=== PATIENT | male | born 1990 | race American Indian/Alaskan Native ===

== ENCOUNTER 2020-01-22 00:12 | Emergency (ER) | payer SELFPAY ==
--- NOTE | 2020-01-22 01:48 | XRay Report ---
LEFT HAND 3 VIEW INDICATION / CLINICAL INFORMATION: Left ring finger pain. COMPARISON: None available. FINDINGS: BONES/JOINT(S): No acute fracture or subluxation. No significant degenerative changes. SOFT TISSUES: No significant abnormality. ADDITIONAL FINDINGS: None. Signer Name: Matthias He MD Signed: 01/22/2020 1:44 AM Workstation Name: [id number]
--- NOTE | 2020-01-22 02:02 | Emergency Department Report ---
ED General Adult HPI - General Chief complaint: Extremity Injury, Upper Stated complaint: JAMMED FINGER Time Seen by Provider: 01/22/20 01:34 Source: patient Mode of arrival: Ambulatory Limitations: No Limitations - History of Present Illness Initial comments: 29-year-old -[place] male patient presents with complaints of left ring finger pain after jamming his finger while performing lawn work yesterday. He rates his current pain as a 7/10 in severity and denies any numbness/tingling or decreased range of motion of the finger. He states he has not tried any OTC medication or icing for his pain. - Related Data Previous Rx's Medication Instructions Recorded Last Taken Type Ibuprofen [Motrin 800 MG tab] 800 mg PO ONCE PRN #21 tablet 01/22/20 Unknown Rx Allergies Allergy/AdvReac Type Severity Reaction Status Date / Time No Known Allergies Allergy Unverified 01/22/20 01:05 ED Review of Systems ROS: Stated complaint: JAMMED FINGER Other details as noted in HPI Constitutional: denies: fever, malaise Musculoskeletal: arthralgia Neurological: denies: numbness, paresthesias ED Past Medical Hx - Past Medical History Previous Medical History?: Yes Hx Asthma: Yes - Surgical History Past Surgical History?: No - Social History Smoking Status: Never Smoker Substance Use Type: None - Medications Home Medications: Home Medications Medication Instructions Recorded Confirmed Last Taken Type Ibuprofen [Motrin 800 MG tab] 800 mg PO ONCE PRN #21 tablet 01/22/20 Unknown Rx ED Physical Exam - General Limitations: No Limitations General appearance: alert, in no apparent distress - Head Head exam: Present: atraumatic, normocephalic - Eye Eye exam: Absent: scleral icterus - Respiratory Respiratory exam: Absent: respiratory distress - Cardiovascular Cardiovascular Exam: Present: regular rate - Extremities Exam Extremities exam: Present: other (Mild tenderness to palpation noted of the PIP joint swelling or deformity noted; no erythema; patient full range of motion sensation normal) - Neurological Exam Neurological exam: Present: alert, oriented X3 - Psychiatric Psychiatric exam: Present: normal affect, normal mood - Skin Skin exam: Present: warm, dry, intact, normal color. Absent: rash, cyanosis, erythema ED Course Vital Signs 01/22/20 01/22/20 01:01 02:38 Temperature 98.0 F 98.1 F Pulse Rate 53 L 60 Respiratory 12 18 Rate Blood Pressure 121/70 Blood Pressure 122/71 [Left] O2 Sat by Pulse 96 Oximetry ED Medical Decision Making - Radiology Data Radiology results: report reviewed LEFT HAND 3 VIEW INDICATION / CLINICAL INFORMATION: Left ring finger pain. COMPARISON: None available. FINDINGS: BONES/JOINT(S): No acute fracture or subluxation. No significant degenerative changes. SOFT TISSUES: No significant abnormality. ADDITIONAL FINDINGS: None. - Medical Decision Making 29-year-old -[place] male patient presents with complaints of left ring finger pain after jamming his finger while performing lawn work yesterday. He rates his current pain as a 7/10 in severity and denies any numbness/tingling or decreased range of motion of the finger. He states he has not tried any OTC medication or icing for his pain. There is some tenderness to palpation of of the PIP joint of the left ring finger on exam without erythema, swelling, or obvious deformity. X-ray of the finger is normal. Patient placed in a metal finger splint and advised on rice method for treatment and NSAIDs. Recommend follow-up with orthopedics as needed. Strict return precautions were discussed in detail with patient who verbalizes understanding. Critical care attestation.: If time is entered above; I have spent that time in minutes in the direct care of this critically ill patient, excluding procedure time. ED Disposition Clinical Impression: Sprain, finger Qualifiers: Encounter type: initial encounter Finger: ring finger Sprain of finger site: other site Laterality: left Qualified Code(s): S63.695A - Other sprain of left ring finger, initial encounter Disposition: - TO HOME OR SELFCARE Is pt being admited?: No Condition: Stable Instructions: Finger Sprain (ED) Prescriptions: Ibuprofen [Motrin 800 MG tab] 800 mg PO ONCE PRN #21 tablet PRN Reason: pain Referrals: MATTHEW CARRILLO MD [Staff Physician] - as needed
[2020-01-22] MEDS ORDERED: IBUPROFEN 800 MG TAB PO ONE (02:23)
[2020-01-22 02:39] VITALS: BP 122/71
== END 2020-01-22 02:37 | disposition home or self-care (01) ==
LOC: ED 00:12
DX: S63.695A Other sprain of left ring finger, initial encounter (principal); J45.909 Unspecified asthma, uncomplicated; X58.XXXA Exposure to other specified factors, initial encounter; Y93.89 Activity, other specified; Y92.89 Other specified places as the place of occurrence of the external cause; Y99.8 Other external cause status